=== PATIENT | female | born 1995 | race Caucasian/White ===

== ENCOUNTER 2017-11-15 12:45 | Emergency (ER) | payer OTHER ==
--- OUTSIDE RECORDS SUMMARY | 2017-11-15 12:49 | XMS REPORT ---
:1995 Author Organization [employer] Care Team Providers Name Role Phone Torre, Na Provider Role Unavailable Allergies, Adverse Reactions, Alerts Substance Reaction Event Type N.K.D.A. Info Not Available Non Drug Allergy Problems Problem Type Condition Code Onset Dates Condition Status Assessment Seasonal allergic rhinitis, J30.2 Active unspecified trigger Assessment Constipation, unspecified K59.00 Active constipation type Assessment GERD without esophagitis K21.9 Active Problem Constipation, unspecified K59.00 Active constipation type Problem Recurrent acute serous otitis media H65.04 Active of right ear Problem GERD without esophagitis K21.9 Active Assessment Pharyngitis due to other organism J02.8 Active Assessment Recurrent acute serous otitis media H65.04 Active of right ear Problem Pharyngitis due to other organism J02.8 Active Problem Environmental allergies Z91.09 Active Medications Medication Code System Code Instructions Start Date End Date Status Dosage Augmentin ND 18363231274 875-125 MG Orally October 17, Active 1 tablet every 12 hrs 2017 Augmentin NDC [id number] 875-125 MG Orally Active 1 tablet every 12 hrs Results No Known Results Summary Purpose eClinicalWorks Submission
[2017-11-15 13:45] LABS: Absolute Lymphocytes (CBC) 1.7 K/uL (0.7-4.9); Absolute Monocytes 0.6 K/uL (0.1-1.3); Absolute Neutrophil 5.3 K/uL (1.8-8.0); Eosinophils % 0.6 % (0-4.4); Hematocrit 37.9 % (36.0-45.0); Lymphocytes % 22.2 % (15.3-44.8); MCH 29.2 pg (27.0-35.0); MPV 8.3 fL (7.6-11.3); Monocytes % 7.7 % (3.3-12.3); RBC Red Blood Cell Count 4.31 M/uL (3.86-4.86)
--- NOTE | 2017-11-15 14:35 | RAD REPORT ---
EXAM DESCRIPTION: US - Transvaginal Study Probe - 11/15/2017 2:05 pm CLINICAL HISTORY: Abdominal pain, pelvic pain, dyspareunia COMPARISON: None. TECHNIQUE: Endovaginal sonography was performed. FINDINGS: Uterus is normal in size with no myometrial mass identifiable. Endometrial stripe is 11 mm , normal range for the patient's age. No discrete endometrial mass or polyp seen. Uterus measures jamal roximately 7.3 x 4.1 x 5.0 cm. Both ovaries are identified. Doppler evaluation shows normal blood flow within the ovarian stroma. No evidence for fallopian tube dilatation. A 2.1 centimeter heterogeneous hypoechoic right ovarian mass is present suspected to be a hemorrhagic ovarian cyst. There is a small amount of blood in the cul-d e-sac which is possibly from this ruptured or hemorrhagic right ovarian structure. No dominant ovaria n finding that would elevate the possible torsion. No history available as to negative or positive pr egnancy test. No uterine or adnexal finding suspicious for intrauterine or ectopic . IMPRESSION: Approximately 2.1 centimeter hypoechoic right ovarian mass believed to be a hemorrhagic or leaking ovarian cyst. Small quantity of blood in the cul-de-sac is probably from this suspected he morrhagic ovarian cyst. No suspicious uterine or left ovarian finding.
[2017-11-15] MEDS ORDERED: HYDROCODONE/APAP 7.5/325 MG TAB ONE (14:43)
--- NOTE | 2017-11-15 14:43 | ER ---
Nurse's Notes [facility] Name: Norma Langley Age: 22 yrs Sex: Female : 1995 Arrival Date: 11/15/2017 Time: 12:47 Bed 24 Private MD: Unknown, Unknown Diagnosis: Other ovarian cysts;Abdominal and pelvic pain Presentation: 11/15 12:56 Presenting complaint: Patient states: " I started hurting really bad after we had ph intercourse." Pt reports pain in pelvic area that radiates to rectal area, describes as sharp and pressure, and nausea, denies bleeding or discharge, also denies V/D. Transition of care: patient was not received from another setting of care. Onset of symptoms was November 15, 2017. Risk Assessment: Do you want to hurt yourself or someone else? Patient reports no desire to harm self or others. Initial Sepsis Screen: Does the patient meet any 2 criteria? No. Patient's initial sepsis screen is negative. Does the patient have a suspected source of infection? No. Patient's initial sepsis screen is negative. Care prior to arrival: None. 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 - Social history:: Smoking status: Patient/guardian denies using tobacco. - Ebola Screening: : No symptoms or risks identified at this time. Screenin:07 Abuse screen: Denies threats or abuse. Nutritional screening: No deficits noted. tl3 Tuberculosis screening: No symptoms or risk factors identified. Fall Risk None identified. Assessment: 13:07 General: Appears distressed, uncomfortable, slender, well groomed, well developed, well tl3 nourished, Behavior is calm, cooperative, appropriate for age. Pain: Complains of pain in right lower quadrant and left lower quadrant Pain currently is 10 out of 10 on a pain scale. Neuro: No deficits noted. Level of Consciousness is awake, alert, obeys commands, Oriented to person, place, time, situation, Appropriate for age. Cardiovascular: Patient's skin is warm and dry. Respiratory: Airway is patent Respiratory effort is even, unlabored, Respiratory pattern is regular, symmetrical. GI: No deficits noted. No signs and/or symptoms were reported involving the gastrointestinal system. : Reports cramping, in right in left lower quadrant(s) inability to void, since post coital pain lower abdomen, radiates to rectum pain. EENT: No deficits noted. No signs and/or symptoms were reported regarding the EENT system. Derm: No deficits noted. No signs and/or symptoms reported regarding the dermatologic system. Musculoskeletal: No deficits noted. No signs and/or symptoms reported regarding the musculoskeletal system. Vital Signs: 12:59 BP 141 / 97; Pulse 110; Resp 22; Temp 97.87; Pulse Ox 98% on R/A; Weight 53.07 kg; Pain ph 8/10; 14:16 BP 107 / 79; Pulse 98; Resp 18; Pulse Ox 100% ; tl3 ED Course: 12:47 Patient arrived in ED. jb7 12:48 Unknown, Unknown is Private Physician. jb7 12:58 Triage completed. ph 13:00 Arm band placed on. ph 13:03 [facility] Gibbs [facility]C [facility]. snw 13:03 Kevin Duong MD is Attending Physician. snw 13:04 Celeste Rosa, WOOD is Primary Nurse. tl3 13:07 Patient has correct armband on for positive identification. Bed in low position. Call tl3 light in reach. Side rails up X 1. Adult w/ patient. 13:07 No provider procedures requiring assistance completed. tl3 13:44 Initial lab(s) drawn, by me, sent to lab. tl3 13:45 Patient taken to ultrasound. via wheelchair. lc3 14:05 US Transvaginal Study (Probe) In Process Unspecified. EDMS 14:07 Patient moved back from radiology. tl3 14:42 Hong Yang MD is Referral Physician. snw 14:53 Patient did not have IV access during this emergency room visit. tl3 Administered Medications: 14:45 Drug: TORadol 60 mg Route: IM; Site: right gluteus; tl3 14:53 Follow up: Response: Medication administered at discharge. tl3 14:45 Drug: [place] 5 mg-325 mg 1 tabs Route: PO; tl3 14:52 Follow up: Response: Medication administered at discharge. tl3 Outcome: 14:43 Discharge ordered by . yara 14:53 Discharged to home ambulatory. tl3 14:53 Condition: stable 14:53 Discharge instructions given to patient, Instructed on discharge instructions, follow up and referral plans. medication usage, Demonstrated understanding of instructions, follow-up care, medications, Prescriptions given X 2. 14:54 Patient left the ED. tl3 Signatures: Dispatcher [employer] EDMS Janet Gibbs, PRINT OPERATOR-C PRINT OPERATOR-Csnw Nithya Platt, RN RN Tim Hughes Jason jb7 Celeste Rosa, RN RN tl3
--- NOTE | 2017-11-15 14:43 | EDPHYS ---
Physician Documentation [facility] Name: Norma Langley Age: 22 yrs Sex: Female : 1995 Arrival Date: 11/15/2017 Time: 12:47 Bed 24 Private MD: Unknown, Unknown ED Physician Kevin Duong HPI: 11/15 13:39 This 22 yrs old Female presents to ER via Ambulatory with complaints of snw Pelvic Pain. 13:39 Onset: The symptoms/episode began/occurred suddenly, and became worse just prior to snw arrival, and became persistent. Associated signs and symptoms: The patient has no apparent associated signs or symptoms. Modifying factors: The patient symptoms are alleviated by nothing. The patient has not experienced similar symptoms in the past. The patient has not recently seen a physician. post-coital right lower quad pain, nausea. 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 - Social history:: Smoking status: Patient/guardian denies using tobacco. - Ebola Screening: : No symptoms or risks identified at this time. ROS: 13:39 Constitutional: Negative for fever, chills, and weight loss, Eyes: Negative for injury, snw pain, redness, and discharge, ENT: Negative for injury, pain, and discharge, Neck: Negative for injury, pain, and swelling, Cardiovascular: Negative for chest pain, palpitations, and edema, Respiratory: Negative for shortness of breath, cough, wheezing, and pleuritic chest pain, Back: Negative for injury and pain, : Negative for injury, bleeding, discharge, and swelling, MS/Extremity: Negative for injury and deformity, Skin: Negative for injury, rash, and discoloration, Neuro: Negative for headache, weakness, numbness, tingling, and seizure. 13:39 Abdomen/GI: Positive for abdominal pain, nausea, of the right lower quadrant, pain is contraction like and radiates from RLQ to rectum. + nausea. Exam: 13:38 Head/Face: Normocephalic, atraumatic. Eyes: Pupils equal round and reactive to light, snw extra-ocular motions intact. Lids and lashes normal. Conjunctiva and sclera are non-icteric and not injected. Cornea within normal limits. Periorbital areas with no swelling, redness, or edema. ENT: Nares patent. No nasal discharge, no septal abnormalities noted. Tympanic membranes are normal and external auditory canals are clear. Oropharynx with no redness, swelling, or masses, exudates, or evidence of obstruction, uvula midline. Mucous membranes moist. Neck: Trachea midline, no thyromegaly or masses palpated, and no cervical lymphadenopathy. Supple, full range of motion without nuchal rigidity, or vertebral point tenderness. No Meningismus. Chest/axilla: Normal chest wall appearance and motion. Nontender with no deformity. No lesions are appreciated. Cardiovascular: Regular rate and rhythm with a normal S1 and S2. No gallops, murmurs, or rubs. Normal PMI, no JVD. No pulse deficits. Respiratory: Lungs have equal breath sounds bilaterally, clear to auscultation and percussion. No rales, rhonchi or wheezes noted. No increased work of breathing, no retractions or nasal flaring. Back: No spinal tenderness. No costovertebral tenderness. Full range of motion. Skin: Warm, dry with normal turgor. Normal color with no rashes, no lesions, and no evidence of cellulitis. MS/ Extremity: Pulses equal, no cyanosis. Neurovascular intact. Full, normal range of motion. Neuro: Awake and alert, GCS 15, oriented to person, place, time, and situation. Cranial nerves II-XII grossly intact. Motor strength 5/5 in all extremities. Sensory grossly intact. Cerebellar exam normal. Normal gait. 13:38 Constitutional: The patient appears alert, awake, anxious, in obvious pain. 13:38 Abdomen/GI: Inspection: abdomen appears normal, Bowel sounds: normal, Palpation: moderate abdominal tenderness, severe abdominal tenderness, in the right lower quadrant. Vital Signs: 12:59 BP 141 / 97; Pulse 110; Resp 22; Temp 97.87; Pulse Ox 98% on R/A; Weight 53.07 kg; Pain ph 8/10; 14:16 BP 107 / 79; Pulse 98; Resp 18; Pulse Ox 100% ; tl3 MDM: 13:04 Patient medically screened. snw 14:44 Data reviewed: vital signs, nurses notes. Data interpreted: Pulse oximetry: on room air snw is 100 %. Interpretation: normal. Counseling: I had a detailed discussion with the patient and/or guardian regarding: the historical points, exam findings, and any diagnostic results supporting the discharge/admit diagnosis, lab results, radiology results, the need for outpatient follow up, to return to the emergency department if symptoms worsen or persist or if there are any questions or concerns that arise at home. Special discussion: Based on the patient's Hx, exam, and Dx evaluation, there is no indication for emergent surgery or inpatient Tx. It is understood by the patient/guardian that if the Sx's persist or worsen they need to return immediately for re-evaluation. Based on the history and exam findings, there is no indication for further emergent testing or inpatient evaluation. I discussed with the patient/guardian the need to see the OB Gyne specialist for further evaluation of the symptoms. I discussed with the patient/guardian the need to see the primary care provider for further evaluation of the symptoms. 14:45 Response to treatment: the patient's symptoms have markedly improved after treatment. snw 11/15 13:22 Order name: CBC with Diff; Complete Time: 13:48 snw 11/15 13:22 Order name: Test, Serum; Complete Time: 14:20 snw 11/15 13:22 Order name: US Transvaginal Study (Probe); Complete Time: 14:40 snw Administered Medications: 14:45 Drug: TORadol 60 mg Route: IM; Site: right gluteus; tl3 14:53 Follow up: Response: Medication administered at discharge. tl3 14:45 Drug: [place] 5 mg-325 mg 1 tabs Route: PO; tl3 14:52 Follow up: Response: Medication administered at discharge. tl3 Disposition: 18:42 Co-signature as Attending Physician, Kevin Duong MD I agree with the assessment and kdr plan of care. Disposition: 11/15/17 14:43 Discharged to Home. Impression: Other ovarian cysts, Abdominal and pelvic pain. - Condition is Stable. - Discharge Instructions: Ovarian Cyst, Abdominal Pain, Women. - Prescriptions for Bentyl 20 mg Oral Tablet - take 1 tablet by ORAL route every 6 hours As needed; 20 tablet. Diclofenac Sodium 75 mg Oral Tablet, Delayed Release (E.C.) - take 1 tablet by ORAL route 2 times per day prn pain; 30 tablet. - Medication Reconciliation Form, Thank You Letter, Antibiotic Education, Prescription Opioid Use, Work release form form. - Follow up: Hong Yang MD; When: 2 - 3 days; Reason: Recheck today's complaints, Continuance of care, Re-evaluation by your physician. Signatures: Dispatcher [employer] EDPA Kevin Duong MD MD [facility] Janet Gibbs, EQUITY DIRECTOR-C EQUITY DIRECTOR-Csnw Nithya Platt, RN RN Celeste Rosa RN RN tl3 Corrections: (The following items were deleted from the chart) 13:41 13:39 Abdomen/GI: Positive for abdominal pain, nausea, of the right lower quadrant, snw pain is contraction like and radiates from RLQ to rectum, snw 14:54 14:43 11/15/2017 14:43 Discharged to Home. Impression: Other ovarian cysts; Abdominal tl3 and pelvic pain. Condition is Stable. Forms are Medication Reconciliation Form, Thank You Letter, Antibiotic Education, Prescription Opioid Use. Follow up: Hong Yang; When: 2 - 3 days; Reason: Recheck today's complaints, Continuance of care, Re-evaluation by your physician. snw
[2017-11-15] MEDS ORDERED: KETOROLAC 30 MG/ML INJ ONE (14:44)
[2017-11-15 15:16] VITALS: BP 107/79; O2SAT 100
== END 2017-11-15 14:54 | disposition home or self-care (01) ==
LOC: ER 12:45
DX: N83.299 Other ovarian cyst, unspecified side (principal)
CPT/HCPCS: 36415; 76830; 84703; 85025; 96372; 99284

== ENCOUNTER 2021-02-04 17:47 | Emergency (ER) | payer SELFPAY ==
--- OUTSIDE RECORDS SUMMARY | 2021-02-04 17:49 | XMS REPORT | Continuity of Care Document ---
:1995 Author Organization [facility] t Address [address] [place] [address] Care Team Providers Name Role Phone Unavailable Unavailable Unavailable Payers Payer Name Policy Type Policy Number Effective Date Expiration Date S ource Problems Condition Condition Condition Status Onset Resolution Last Treating Co mments Source Name Details Category Date Date Treatment Clinician Date Environmen Environmen Problem Active [facility] sou[facility]ymane souleymane [facility] - allergies allergies [facility]onzo holden l [facility] Clinics Seasonal Seasonal Diagnosis Active [facility] allergic allergic [facility] - rhinitis, rhinitis, Alonzo holden unspecifie unspecifie l d trigger d trigger Outp ati ent Clinics Constipati Constipati Problem Active [facility] on, on, [facility] - unspecifie unspecifie Me moria d d l constipati constipati Ou tpati on type on type ent Clinics GERD GERD Problem Active [facility] without without [facility] - esophagiti esophagiti Me moria s s l Outpati ent Clinics Recurrent Recurrent Diagnosis Active [facility] acute acute [facility] - serous serous Memoria otitis otitis l media of media of Outpat i right ear right ear ent Clinics Pharyngiti Pharyngiti Problem Active [facility] s due to s due to [facility] - other other Memoria organism organism l Outpati ent Clinics Allergies, Adverse Reactions, Alerts Allergy Allergy Status Severity Reaction(s) Onset Inactive Treating Comm ents Source Name Type Date Date Clinician No Known DA Active [facility] Medications Ordered Filled Start Stop Current Ordering Indication Dosage Frequency Signature Comments Components Source Medication Medication Date Date Medication? Clinician (SIG) Name Name Augmentin Augmentin 2018- No Na [place] [address] [facility] 10[facility]17 [facility] [facility] Procedures This patient has no known procedures. Encounters Start End Encounter Admission Attending Care Care Encounter Source Date/Time Date/Time Type Type Clinicians Facility Department ID 2017-10-07 2017-10-07 Outpatient [facility] [id number] [address] 11:15:00 11:15:00 [facility] ent [facility] Results Test Description Test Time Test Comments Results Result Comments Source AB HEPATITIS C PROFILE 2020-01-08 05:14:00 Test Item Value Reference Range Interpretation Comme nts AB HEPATITIS C (test code = HCVAB) NONREACTIVE NONREACTIVE SIGNAL TO CUTOFF (test code = CUTOFF) 0.23 <0.80 N Comments to Rail Equipment Operator: LDO JIS CONSENT FORM SIGNED FOR HIV TESTING? YAB [id number] 05:14:00 Test Item Value Reference Range Interpretation Comments AB TREPONEMA (test code = TREPAB) NONREACTIVE NONREACTIVE Comments to Rail Equipment Operator: LDO JIS CONSENT FORM SIGNED FOR HIV TESTING? YAB HIV 1 05:14:00 Test Item Value Reference Range Interpretation Comments AB HIV 1 2 (test NONREACTIVE NONREACTIVE Done by Pato Rodriguezr code = [id number]) 4th Gen HIV Ag/Ab Combo Screen Comments to Rail Equipment Operator: LDO JIS CONSENT FORM SIGNED FOR HIV TESTING? YAG HEPATITIS B [id number] 05:14:00 Test Item Value Reference Range Interpretation Comments AG HEPATITIS B SURFACE (test code NONREACTIVE NONREACTIVE = HBSAG) Comments to Rail Equipment Operator: LDO JIS CONSENT FORM SIGNED FOR HIV TESTING? YAG HEPATITIS B [id number] 04:52:00 Test Item Value Reference Range Interpretation Comments AG HEPATITIS B SURFACE (test code NONREACTIVE NONREACTIVE = HBSAG) Comments to Rail Equipment Operator: LDO JIS CONSENT FORM SIGNED FOR HIV TESTING? YAB HEPATITIS C [id number] 04:52:00 Test Item Value Reference Range Interpretation Comments AB HEPATITIS C (test code = HCVAB) NONREACTIVE SIGNAL TO CUTOFF (test code = CUTOFF) <0.80 Comments to Rail Equipment Operator: LDO JIS CONSENT FORM SIGNED FOR HIV TESTING? YAB [id number] 04:52:00 Test Item Value Reference Range Interpretation Comments AB TREPONEMA (test code = TREPAB) NONREACTIVE NONREACTIVE Comments to Rail Equipment Operator: LDO JIS CONSENT FORM SIGNED FOR HIV TESTING? YAB HIV 1 04:52:00 Test Item Value Reference Range Interpretation Comments AB HIV 1 2 (test code = [id number]) NONREACTIVE Comments to Rail Equipment Operator: LDO JIS CONSENT FORM SIGNED FOR HIV TESTING? YCBC W/AUTO [id number] 04:24:00 Test Item Value Reference Range Interpretation Comments WHITE BLOOD CELL (test code = WBC) 18.1 K/mm3 6.6-12.1 H RED BLOOD CELL (test code = RBC) 4.37 M/mm3 3.45-5.01 N HEMOGLOBIN (test code = HGB) 12.3 g/dL 10.7-13.9 N HEMATOCRIT (test code = HCT) 39.3 % 32.1-42.1 N MEAN CELL VOLUME (test code = MCV) 90 fL 84.1-94.8 N MEAN CELL HGB (test code = MCH) 28.1 pg 27-35 N MEAN CELL HGB CONCETRATION (test 31.3 gm/dL 32.2-34.1 L code = MCHC) RED CELL DISTRIBUTION WIDTH (test 16.4 % 12.4-16.5 N code = RDW) PLATELET COUNT (test code = PLT) 308 K/mm3 133-385 N MEAN PLATELET VOLUME (test code = 11.7 fl 9.1-12.7 N MPV) NEUTROPHIL % (test code = NT%) 83.4 % 56.5-79.4 H LYMPHOCYTE % (test code = LY%) 7.8 % 14.3-34.3 L MONOCYTE % (test code = MO%) 7.2 % 5.1-10.4 N EOSINOPHIL % (test code = EO%) 0.6 % 0.1-3.0 N BASOPHIL % (test code = BA%) 0.3 % 0.1-1.0 N NEUTROPHIL # (test code = NT#) 15.1 K/mm3 LYMPHOCYTE # (test code = LY#) 1.4 K/mm3 MONOCYTE # (test code = MO#) 1.3 K/mm3 EOSINOPHIL # (test code = EO#) 0.10 K/mm3 BASOPHIL # (test code = BA#) 0.1 K/mm3 RBC MORPHOLOGY REQUIRED (test code NORMAL NORMAL = RBCM) PLATELET MORPHOLOGY REQUIRED (test NORMAL NORMAL code = PLTMR) COVID 19 Asymptomatic IH [id number] 04:11:00 Test Item Value Reference Range Interpretation Comments COVID 19 NEGATIVE NEGATIVE This test has b een Asymptomatic IH AG authorize d only for the (test code = detection ofpro teins from COVNONPUIAG) SARS-CoV-2, not for any other viruses orpathogens. N egative results should be treated as presumptive andconfirmed wi th a molecular assay , if necessary for patientmanageme nt. Negative result s do not rule out COVID- 19 andshould not b e used as the sole basis for treatment orpat ient management deci sions, including infec tion controldecision s. Negative result s should be considered i n thecontext of a patient's recent exposure s, history and thepresence of clinical signs and symptoms consis tent withCOVID-19. T his test has not been FD A cleared or approved; th e test hasbeen authori ag by FDA under an Emerge ncy Use Authorization(E UA) for use by laborato kathryn certified under the CLIA thatmeet the re quirements to perform mode rate, high or waivedcomple xity tests. This zeke t is authorized for use at thePoint of Car e (POC), i.e., in patien t care settingsoperati ng under a CLIA Certificat e of Waiver, Certifi megan ofCompliance, o r Certificate of Accreditation. This test is only authori zed for the duration of thedeclaration that circumstances e xist justifying theauthorizatio n of emergency use o f in vitro diagnostic test sfor detection and/o r diagnosis of CO VID-19 under Nqhirgw86 4(b)(1) of the Act, 21 U.S .C. 360bbb-3(b)(1), unless theauthorizatio n is terminated or r evoked sooner. - US PREG AFTER [id number] 10:16:00 Patient Name: VANESSA OZUNA Unit No: [id number] EXAMS: CPT CODE: [id number] US PREG AFTER 1ST TRI [address] [facility] [address] [place], [place] [address] OBSTETRICAL ULTRASOUND REPORT Pat. Name: VANESSA OZUNA Pat. No: [id number] Study Date: 08/24/2019 9:03am , Age: 01 1995, 24 Pregnancies: 2, Para 1 LMP: 04/07/2019 GA by LMP: 19w6d GA by US: 18w6d GA Selected: 19w6d (LMP) MIRANDA: 01/12/2020 Referring MD: Verenice Villa M.D. Production Staff Worker: Robyn Dao RDMS CPT4: [id number] Admitting MD: MARILEE CUTLER Hist/Ind: ANATOMY SCAN 1 MEASUREMENTS AGE GROWTH EVALUATION Measurement GA Range Srce %for GA Ratios ----- ---- ------- BPD 4.2 cm 18w5d (73m0u-35y7w) Hadl BPD <05 FL/BPD 0.69 HC 16.0 cm 18w5d (36m7r-42l7i) Hadl HC 17% FL/AC 0.20 APD 4.8 cm APD HC/AC 1.11 (1.06 - 1.25) TAD 4.4 cm TAD CI 0.77 (0.70 - 0.86) AC 14.5 cm 19w3d (17w3d- 21w3d) Hadl AC 41% FL 2.9 cm 18w5d (19u1m-80m1w) Hadl FL 23% HL 2.9 cm 19w3d (09n0n-56k1q) Joaquim HL 42% GA for sonogram 18w6d (34i7z-33y1p) Weight Estimate: based on (BPD,HC,AC,FL) Hadlock Weight: 287 gm (245-329) Hadlock : 0lbs, 10oz Cervical Length: 3.7 cm Heart Rate: 161 bpm CLINICAL SUMMARY Type of Gestation: Man Intrauterine in breech presentation. size is appropriate for gestational age. growth: lower range normal motion and organs seen: somatic activity observed body and limb movements seen Four chamber heart observed Left ventricular outflow tract (LVOT) seen Right ventricular outflow tract (RVOT) seen Regular cardiac rhythm observed Normal intracranial anatomy seen Umbilical cord insertion infetus seen stomach, Renal Fossa, Bladder and Spine seen Three vessel umbilical cord noted [facility] NAME: VANESSA OZUNA Radiology Department PHYS: Marilee Sanz [address] : 1995 AGE: 24 SEX: F [place], [place] [address] LOC: [facility] PHONE #: [phone] EXAM DATE: 08/24/2019 STATUS: REG CLI FAX #: [phone] RAD NO: Page 1 Signed Report (CONTINUED) Patient Name: VANESSA OZUNA Unit No: [id number] EXAMS: CPT CODE: [id number] US PREG AFTER 1ST TRI 295[address] <Continued> abnormalities observed: None seen at this exam Placental location: Posterior Placental maturity : Grade 1 There is no evidence of placenta previa. Amniotic fluid volume is normal. Uterus and adnexa: No significant abnormality is seen. FOLLOW UP FOR GROWTH CLINICALLY INDICATED. Thank you for allowing us to participate in the care of this patient. Zackery Hancock M.D. Electronic Signature 08/24/2019 10:16am at 1016 Reported and signed by: Sharlene Hancock MD CC: Technologist: Robyn Dao RDMS Probe: Trnscrbd D/ (1016) [email or web address].[email or web address] Orig Print D/T: S: 08/24/2019 (1016) [facility] NAME: VANESSA OZUNA Radiology Department PHYS: Marilee Sanz [address] : 1995 AGE: 24 SEX: F [place] [address] LOC: F.RAD PHONE #: [phone] EXAM DATE: 08/24/2019 STATUS: REG CLI FAX #: [phone] RAD NO: Page 2 Signed Report Patient Name: VANESSA OZUNA Unit No: [id number] EXAMS: CPT CODE: [id number] US PREG AFTER 1ST TRI [address] <Continued> [facility] NAME: VANESSA OZUNA Radiology Department PHYS: Marilee Sanz [address] : 1995 AGE: 24 SEX: F [place] [address] LOC: F.RAD PH ONE #: [phone] EXAM DATE: 08/24/2019 STATUS: REG CLI FAX #: [phone] RAD NO: Page 3 Signed Report
[2021-02-04 19:12] LABS: Urine Blood Negative (Negative); Urine Glucose Negative (Negative); Urine Protein Negative (Negative); Urine pH 7.5 (5.0-7.0)
[2021-02-04 21:15] LABS: Basophils % 0.5 % (0-1.3); Lymphocytes % 29.5 % (15.3-44.8); MPV 8.3 fL (7.6-11.3); RBC Red Blood Cell Count 4.24 M/uL (3.86-4.86)
[2021-02-04 21:42] LABS: ALT/SGPT 22 U/L (12-78); AST/SGOT 18 U/L (15-37); Albumin 4.3 g/dL (3.4-5.0); Alkaline Phosphatase 53 U/L (45-117); BUN Blood Urea Nitrogen 7 mg/dL (7-18); Bicarbonate 24 mmol/L (21-32); Bilirubin Direct < 0.1 mg/dL (0-0.2); Bilirubin Total 0.3 mg/dL (0.2-1.0); Glucose Level 87 mg/dL (74-106); Lipase 180 U/L (73-393); Potassium 3.6 mmol/L (3.5-5.1); Protein, Total 8.2 g/dL (6.4-8.2); Sodium Level 137 mmol/L (136-145)
--- NOTE | 2021-02-04 23:14 | ER ---
Nurse's Notes [facility] Name: Norma Langley Age: 25 yrs Sex: Female : 1995 Arrival Date: 02/04/2021 Time: 18:06 Bed Treatment Private MD: Diagnosis: Other ovarian cysts-Right ovarian cyst Presentation: 02/04 18:36 Chief complaint: Patient states: lower abd pelvic pain, clear watery discharge X 3 iw hours, had two positive UPT and 4 negative, LMP=8-9-21, is also having a bad headache since last night. Coronavirus screen: At this time, the client does not indicate any symptoms associated with coronavirus-19. Ebola Screen: Patient negative for fever greater than or equal to 101.5 degrees Fahrenheit, and additional compatible Ebola Virus Disease symptoms Patient denies exposure to infectious person. Patient denies travel to an Ebola-affected area in the 21 days before illness onset. No symptoms or risks identified at this time. Initial Sepsis Screen: Does the patient meet any 2 criteria? No. Patient's initial sepsis screen is negative. Does the patient have a suspected source of infection? No. Patient's initial sepsis screen is negative. Risk Assessment: Do you want to hurt yourself or someone else? Patient reports no desire to harm self or others. Onset of symptoms was February 04, 2021. 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 - Social history:: Smoking status: Patient denies any tobacco usage or history of. Screenin:01 Abuse screen: Denies threats or abuse. Denies injuries from another. Nutritional aj1 screening: No deficits noted. Tuberculosis screening: No symptoms or risk factors identified. 23:42 Fall Risk None identified. bb Assessment: 21:01 General: Appears in no apparent distress. uncomfortable, Behavior is calm, cooperative, aj1 appropriate for age. Pain: Complains of pain in suprapubic area and left inguinal area Pain does not radiate. Pain currently is 4 out of 10 on a pain scale. at worst was 8 out of 10 on a pain scale. Quality of pain is described as aching, Aggravated by movement. Neuro: Level of Consciousness is awake, alert, obeys commands, Oriented to person, place, time, situation. Cardiovascular: Patient's skin is warm and dry. Respiratory: Airway is patent Respiratory effort is even, unlabored, Respiratory pattern is regular, symmetrical. GI: Abdomen is flat, non-distended, Bowel sounds present X 4 quads. Abd is soft and non tender X 4 quads. Reports lower abdominal pain, Patient currently denies diarrhea, nausea, vomiting. : Denies burning with urination, vaginal bleeding. EENT: No signs and/or symptoms were reported regarding the EENT system. Derm: No signs and/or symptoms reported regarding the dermatologic system. Skin is pink, warm \T\ dry. normal. Musculoskeletal: No signs and/or symptoms reported regarding the musculoskeletal system. Circulation, motion, and sensation intact. 22:05 Reassessment: Patient appears in no apparent distress at this time. No changes from aj1 previously documented assessment. Patient and/or family updated on plan of care and expected duration. Pain level reassessed. Patient is alert, oriented x 3, equal unlabored respirations, skin warm/dry/pink. 23:40 Reassessment: Patient is alert, oriented x 3, equal unlabored respirations, skin bb warm/dry/pink. pt verbalized understanding of and agrees to plan of care discharge instructions given pt ambulated with steady gait to exit. Vital Signs: 18:36 BP 123 / 76; Pulse 92; Resp 16; Temp 98.4; Pulse Ox 100% on R/A; Weight 57.15 kg; iw Height 5 ft. 0 in. (152.40 cm); Pain 5/10; 22:48 BP 104 / 67; Pulse 77; Resp 18; Pulse Ox 100% on R/A; aj1 23:41 BP 115 / 78; Pulse 80; Resp 16 S; Pulse Ox 100% on R/A; Pain 4/10; bb 18:36 Body Mass Index 24.61 (57.15 kg, 152.40 cm) iw ED Course: 18:06 Patient arrived in ED. ds1 18:37 Triage completed. iw 18:38 Arm band placed on. iw 20:39 Uri Navarro, MATTEO is PHCP. pm1 20:39 Pérez Gu MD is Attending Physician. pm1 20:39 Katie Anna, RN is Primary Nurse. aj1 20:59 Missed attempt(s): 20 gauge in left antecubital area. vg1 21:01 Patient has correct armband on for positive identification. Bed in low position. Call aj1 light in reach. Side rails up X 1. 21:01 No provider procedures requiring assistance completed. aj1 21:07 Initial lab(s) drawn, by me, sent to lab. Inserted saline lock: 22 gauge in right vg1 antecubital area, using aseptic technique. Blood collected. 22:33 CT Abd/Pelvis - IV Contrast Only In Process Unspecified. EDMS 23:42 IV discontinued, intact, bleeding controlled, No redness/swelling at site. Pressure bb dressing applied. Administered Medications: 23:35 Drug: Ketorolac 30 mg Route: IVP; Site: right antecubital; bb 23:40 Follow up: Response: No adverse reaction bb Outcome: 23:13 Discharge ordered by MD. pm1 23:42 Discharged to home ambulatory, with family. bb 23:42 Condition: stable 23:42 Discharge instructions given to patient, Instructed on discharge instructions, follow up and referral plans. medication usage, Demonstrated understanding of instructions, follow-up care, medications, Prescriptions given X 1. 23:42 Patient left the ED. bb Signatures: Dispatcher [employer] EDMS Katie Anna, WOOD RN aj1 Marsha Campbell ds1 Sara Casarez RN RN bb Natasha Orozco RN RN Uri Navarro, MATTEO TIRE STRIPPER pm1 Edilia Shukla, WOOD RN vg1 Corrections: (The following items were deleted from the chart) 18:39 18:36 Chief complaint: Patient states: lower abd pelvic pain, clear watery discharge X iw 3 hours, had two positive UPT and 4 negative, LMP=8-9-21 iw
--- NOTE | 2021-02-04 23:14 | EDPHYS ---
Physician Documentation [facility] Name: Norma Langley Age: 25 yrs Sex: Female : 1995 Arrival Date: 02/04/2021 Time: 18:06 Bed Treatment Private MD: ED Physician Pérez Gu HPI: 02/04 22:13 This 25 yrs old Female presents to ER via Ambulatory with complaints of pm1 Abdominal Pain. 22:13 The patient presents with abdominal pain in the lower abdomen. pm1 22:13 Onset: The symptoms/episode began/occurred today. The symptoms do not radiate. pm1 Associated signs and symptoms: Pertinent negatives: nausea, vomiting, and diarrhea, chest pain, constipation, dysuria, fever, shortness of breath. The symptoms are described as achy, constant. Modifying factors: The symptoms are alleviated by nothing, the symptoms are aggravated by nothing. Severity of pain: in the emergency department the pain is actually worse. The patient has experienced a previous episode, similar to prior ruptured ovarian cyst.. The patient has not recently seen a physician. Patient is taking multiple home tests over the past couple days. Reports 4 tests negative and 2 tests positive. Patient is concerned that it may not be . Feels similar to prior ruptured ovarian cysts. 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 - Social history:: Smoking status: Patient denies any tobacco usage or history of. ROS: 22:13 Constitutional: Negative for fever, chills, and weight loss, Cardiovascular: Negative pm1 for chest pain, palpitations, and edema, Respiratory: Negative for shortness of breath, cough, wheezing, and pleuritic chest pain. 22:13 Back: Negative for injury and pain, : Negative for injury, bleeding, discharge, and swelling, MS/Extremity: Negative for injury and deformity, Skin: Negative for injury, rash, and discoloration. 22:13 Abdomen/GI: Positive for abdominal pain, Negative for nausea, vomiting, and diarrhea, constipation. 22:13 All other systems are negative. Exam: 22:13 Constitutional: This is a well developed, well nourished patient who is awake, alert, pm1 and in no acute distress. Head/Face: Normocephalic, atraumatic. 22:13 Back: No spinal tenderness. No costovertebral tenderness. Full range of motion. Skin: Warm, dry with normal turgor. Normal color with no rashes, no lesions, and no evidence of cellulitis. MS/ Extremity: Pulses equal, no cyanosis. Neurovascular intact. Full, normal range of motion. 22:13 Eyes: Exam is negative for acute changes, Extraocular movements: no acute changes, Conjunctiva: normal, no injection, Sclera: no acute changes, icterus, is not appreciated. 22:13 ENT: Exam is negative for acute changes, Mouth: Lips: normal, moist, Oral mucosa: normal, pink and intact, moist. 22:13 Cardiovascular: Exam negative for acute changes, Rate: normal, Rhythm: regular, Pulses: no pulse deficits are appreciated. 22:13 Respiratory: Exam negative for acute changes, respiratory distress, shortness of breath. 22:13 Abdomen/GI: Inspection: abdomen appears normal, Palpation: soft, in all quadrants, mild abdominal tenderness, in the suprapubic area. 22:13 Neuro: Exam negative for acute changes, Orientation: is normal, Mentation: is normal, Motor: is normal, moves all fours, Sensation: is normal, no obvious gross deficits. Vital Signs: 18:36 BP 123 / 76; Pulse 92; Resp 16; Temp 98.4; Pulse Ox 100% on R/A; Weight 57.15 kg; iw Height 5 ft. 0 in. (152.40 cm); Pain 5/10; 22:48 BP 104 / 67; Pulse 77; Resp 18; Pulse Ox 100% on R/A; aj1 23:41 BP 115 / 78; Pulse 80; Resp 16 S; Pulse Ox 100% on R/A; Pain 4/10; bb 18:36 Body Mass Index 24.61 (57.15 kg, 152.40 cm) iw MDM: 20:47 Patient medically screened. pm1 22:18 Data reviewed: vital signs. Data interpreted: Pulse oximetry: on room air is 100 %. pm1 Interpretation: normal. 23:10 Counseling: I had a detailed discussion with the patient and/or guardian regarding: the pm1 historical points, exam findings, and any diagnostic results supporting the discharge/admit diagnosis, lab results, radiology results, CT results findings with patient. And recommendation from radiologist regarding prompt follow-up with pelvic ultrasound for hemorrhagic right ovarian cyst. Offered ultrasound of pelvis here in the ER. 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 Reports pain is currently 4 out of 10. Will give the patient Toradol prior to discharge since her by urine and serum is negative. Will discharge with NSAID. 02/04 19:12 Order name: Urine Dipstick-Ancillary EDMS 02/04 19:13 Order name: Urine --Ancillary (enter results); Complete Time: 22:09 tt3 02/04 20:48 Order name: Basic Metabolic Panel; Complete Time: 22:09 pm1 02/04 20:48 Order name: CBC with Diff; Complete Time: 21:23 pm1 02/04 20:48 Order name: Hepatic Function; Complete Time: 22:09 pm1 02/04 20:48 Order name: Lipase; Complete Time: 22:09 pm1 02/04 19:13 Order name: Urine Test (obtain specimen); Complete Time: 19:13 tt3 02/04 20:48 Order name: IV Saline Lock; Complete Time: 21:06 pm1 02/04 20:48 Order name: Labs collected and sent; Complete Time: 21:06 pm1 02/04 20:48 Order name: Test, Serum; Complete Time: 22:09 pm1 02/04 20:48 Order name: CT Abd/Pelvis - IV Contrast Only pm1 Administered Medications: 23:35 Drug: Ketorolac 30 mg Route: IVP; Site: right antecubital; bb 23:40 Follow up: Response: No adverse reaction bb Disposition: 02/05 07:06 Co-signature as Attending Physician, Pérez Gu MD. [email or web address] Disposition Summary: 02/04/21 23:13 Discharge Ordered Location: Home pm1 Problem: new pm1 Symptoms: have improved pm1 Condition: Stable pm1 Diagnosis - Other ovarian cysts - Right ovarian cyst pm1 Followup: pm1 - With: Emergency Department - When: As needed - Reason: Worsening of condition Followup: pm1 - With: Private Physician - When: 2 - 3 days - Reason: Recheck today's complaints, Continuance of care, Re-evaluation by your physician Discharge Instructions: - Discharge Summary Sheet pm1 - Ovarian Cyst pm1 Forms: - Medication Reconciliation Form pm1 - Thank You Letter pm1 - Antibiotic Education pm1 - Prescription Opioid Use pm1 Prescriptions: - Diclofenac Sodium 75 mg Oral tablet,delayed release (DR/EC) - take 1 tablet by ORAL route 2 times per day As needed; 30 tablet; Refills: 0, pm1 Product Selection Permitted Signatures: Dispatcher [employer] Sara Thompson RN RN Natasha Hartman RN RN iw Marinas, Patrick, MATTEO TEST CONDUCTOR pm1 Pérez Gu MD MD 7 Ranjan Stevenson tt3
[2021-02-04 23:50] VITALS: TEMP 98.4; O2SAT 100
[2021-02-04 23:53] VITALS: BP 115/78
[2021-02-04] MEDS ORDERED: KETOROLAC 30 MG/ML INJ ONE (23:58)
--- NOTE | 2021-02-06 11:10 | RAD REPORT ---
EXAM DESCRIPTION: CT - Abdomen Pelvis W Contrast - 02/05/2021 7:00 am CLINICAL HISTORY: The patient is 25 years old and is Female; ABD PAIN TECHNIQUE: Axial computed tomography images of the abdomen and pelvis with intravenous contrast. S agittal and coronal reformatted images were created and reviewed. This CT exam was performed using one or more of the following dose reduction techniques: automated exposure control, adjustment of t he mA and/or kV according to patient size, and/or use of iterative reconstruction technique. COMPARISON: No relevant prior studies available. FINDINGS: LUNG BASES: Unremarkable. No mass. No consolidation. ABDOMEN: LIVER: Unremarkable. No mass. GALLBLADDER AND BILE DUCTS: The gallbladder is contracted. PANCREAS: No ductal dilation. No mass. SPLEEN: Unremarkable. ADRENALS: Unremarkable. No mass. KIDNEYS AND URETERS: Unremarkable. The kidneys enhance symmetrically. No obstructing renal or ur eteral calculus is seen. No hydronephrosis or hydroureter. No perinephric fluid or stranding. STOMACH AND BOWEL: The stomach is filled with fluid and air. The small bowel is normal in calibe r. A moderate amount of stool is present throughout colon. There is no mucosal thickening or evidence of bowel obstruction. PELVIS: APPENDIX: The appendix is normal in caliber without surrounding inflammation. BLADDER: The bladder is significantly distended. REPRODUCTIVE: A heterogeneous 2.8 cm right ovarian cyst is present. The uterus and left ovary ar e unremarkable. ABDOMEN and PELVIS: INTRAPERITONEAL SPACE: Free fluid is present within the pelvis which is likely physiologic. No free air. BONES/JOINTS: No acute fracture. SOFT TISSUES: The soft tissues are normal. VASCULATURE: Unremarkable. No abdominal aortic aneurysm. LYMPH NODES: Unremarkable. No enlarged lymph nodes. IMPRESSION: 1. Heterogeneous right ovarian cyst suggesting a hemorrhagic ovarian cyst. Recommend p rompt follow-up with pelvic ultrasound. 2. Normal appendix. No bowel obstruction. Electronically signed by: Makenna Malin MD 02/04/2021 10:55 PM CDT Due to temporary technical issues with the PACS/Fluency reporting system, reports are being signed by the in house radiologist without review as a courtesy to ensure prompt reporting. The interpreting r adiologist is fully responsible for the content of the report.
== END 2021-02-04 23:42 | disposition home or self-care (01) ==
LOC: ER 17:47
DX: N83.291 Other ovarian cyst, right side (principal); Z98.82 Breast implant status
CPT/HCPCS: 36415; 74177; 80048; 80076; 81003; 81025; 83690; 84703; 85025; 96374; 99284; Q9967